=== PATIENT | female | born 1945 | race Caucasian/White ===

== ENCOUNTER 2021-08-04 09:53 | Observation (INO) ==
[2021-08-04 12:48] LABS: Basophils % 0.4 %; Eosinophils # 0.1 K/mcL (0.0-0.6); Eosinophils % 0.8 %; Hematocrit 38.9 % (35.3-44.9); Hemoglobin 12.3 g/dL (11.5-15.4); Immature Granulocytes % 0.5 % (0-4); Lymphocytes # 0.9 K/mcL (0.6-4.6); Lymphocytes % 10.5 %; Mean Corpuscular HGB Conc 31.6 g/dL (31.6-35.5); Mean Corpuscular Hemoglobin 31.9 pg (28.0-33.3); Mean Platelet Volume 10.2 fL (9.4-12.4); Monocytes # 0.4 K/mcL (0.0-1.3); Monocytes % 5.2 %; Neutrophils # 6.9 K/mcL (1.6-8.9); Platelet Count 178 K/mcL (140-400); Red Blood Count 3.85 M/mcL (3.82-4.97); Red Cell Distribution Width 14.6 % (11.5-14.5); Segmented Neutrophils % 82.6 %; White Blood Count 8.4 K/mcL (4.3-11.1)
[2021-08-04 12:52] LABS: Amorphous Sediment,Urine Few per hpf (None-Few); Bacteria,Urine Moderate per hpf (None-Few); Bilirubin,Urine Negative (Negative); Blood,Urine Small (Negative); Clarity,Urine Ex.Turbid (Clear); Color,Urine Yellow (Yellow); Glucose,Urine (UA) Normal (Normal); Ketones,Urine Negative (Negative); Leukocyte Esterase,Urine Large (Negative); Mucus,Urine Few per lpf (None-Few); Nitrite,Urine Negative (Negative); PH,Urine 7.5 pH Units (5.0-8.0); Protein,Urine 30 mg/dL (Neg-Trace); RBC,Urine 50-100 per hpf (0-3); Specific Gravity,Urine 1.015 (1.010-1.025); Squamous Epithelial Cell,Urine Few per hpf (None-Few); Urobilinogen,Urine Normal (Normal); WBC,Urine 50-100 per hpf (0-3)
[2021-08-04 13:20] LABS: Albumin/Globulin Ratio 1.4 (1.1-2.2); Bilirubin,Direct 0.1 mg/dL (0.0-0.2); Bilirubin,Indirect 0.4 mg/dL (0.0-1.0); Bilirubin,Total 0.5 mg/dL (0.3-1.0); Calcium 9.7 mg/dL (8.6-10.3); Globulin 2.9 g/dL (2.4-3.5); Potassium 4.4 mEq/L (3.5-5.1); Total Protein 6.9 g/dL (6.4-8.9)
[2021-08-04] MEDS ORDERED: 0.9 % Sodium Chloride 1,000 ML IVC ONE (13:46)
[2021-08-04] MEDS ORDERED: Morphine Sulfate 2 MG/ML SYRINGE IVP ONE (15:12)
[2021-08-04] MEDS ORDERED: *HR* HYDROcodone/Acet 5/325 mg TABLET PO PRN (17:22)
[2021-08-04] MEDS ORDERED: Melatonin 3 MG TABLET PO PRN (17:22)
[2021-08-04] MEDS ORDERED: *HR* OxyCODONE Immed Rel 5 MG TABLET PO PRN (17:22)
[2021-08-04] MEDS ORDERED: Ondansetron ODT 4 MG TAB.RAPDIS SL PRN (17:22)
[2021-08-04] MEDS ORDERED: Acetaminophen 325 MG TABLET PO PRN (17:22)
[2021-08-04] MEDS ORDERED: Naloxone 0.4 MG/ML INJ IVP PRN (17:22)
[2021-08-04] MEDS ORDERED: D5% in Water 1,000 ML IVC PRN (18:43)
[2021-08-04] MEDS ORDERED: *HR* Dextrose 50 % in Water (Syg) 50 ML SYRINGE IVP PRN (18:43)
[2021-08-04] MEDS ORDERED: Dextrose 4 GM Chewable Tablets PO PRN ×2 (18:43)
[2021-08-04] MEDS: Insulin LISPRO 300 UNITS/3 ML VIAL SUBQ SCH ×4 (18:47→23:14)
[2021-08-04] MEDS: cefTRIAXone 1,000 MG in 0.9 % Sodium Chloride 10 ML IVP SCH (19:16)
[2021-08-04] MEDS: *HR* Heparin 5,000 UNIT/ML VIAL SQ SCH (20:46)
[2021-08-04] MEDS ORDERED: Insulin LISPRO 300 UNITS/3 ML VIAL SUBQ SCH (21:00)
[2021-08-05 03:38] LABS: Basophils % 0.3 %; Eosinophils # 0.1 K/mcL (0.0-0.6); Eosinophils % 1.5 %; Hematocrit 37.4 % (35.3-44.9); Hemoglobin 11.6 g/dL (11.5-15.4); Immature Granulocytes % 0.6 % (0-4); Lymphocytes # 1.1 K/mcL (0.6-4.6); Lymphocytes % 16.7 %; Mean Corpuscular Volume 106.3 fL (83.0-100.0); Mean Platelet Volume 10.6 fL (9.4-12.4); Monocytes # 0.5 K/mcL (0.0-1.3); Monocytes % 8.4 %; Neutrophils # 4.7 K/mcL (1.6-8.9); Platelet Count 172 K/mcL (140-400); Red Blood Count 3.52 M/mcL (3.82-4.97); Red Cell Distribution Width 14.7 % (11.5-14.5); Segmented Neutrophils % 72.5 %; White Blood Count 6.5 K/mcL (4.3-11.1)
[2021-08-05 03:50] LABS: INR 1.1; Prothrombin Time 12.3 Seconds (9.4-12.1)
[2021-08-05 03:55] LABS: Calcium 9.2 mg/dL (8.6-10.3); Magnesium 1.8 mg/dL (1.6-2.6); Potassium 4.1 mEq/L (3.5-5.1)
[2021-08-05] MEDS: *HR* Heparin 5,000 UNIT/ML VIAL SQ SCH ×2 (06:20→13:12)
[2021-08-05] MEDS: Insulin LISPRO 300 UNITS/3 ML VIAL SUBQ SCH ×3 (06:45→18:49)
[2021-08-05] MEDS ORDERED: Lidocaine HCL 4 ML Topical Solution (Laryng-O-Jet Kit Sterile Pak) TP ONE (08:49)
[2021-08-05] MEDS ORDERED: *HR* FentaNYL (PF) 100 MCG/2 ML VIAL ONE (08:49)
[2021-08-05] MEDS ORDERED: *HR* Rocuronium Bromide 50 MG/5 ML VIAL ONE (08:49)
[2021-08-05] MEDS ORDERED: Ondansetron 4 MG/2 ML VIAL ONE (08:49)
[2021-08-05] MEDS ORDERED: Lidocaine -MPF 2% 2 ML VIAL ONE (08:49)
[2021-08-05] MEDS ORDERED: *HR* Propofol 200 MG/20 ML VIAL IVP ONE (08:49)
[2021-08-05] MEDS ORDERED: atenoloL 50 MG TABLET PO SCH (09:00)
[2021-08-05] MEDS ORDERED: Lidocaine Jelly 11 ml Syringe ONE (09:19)
[2021-08-05] MEDS ORDERED: Isovue-300 50ML VIAL ONE (09:19)
[2021-08-05] MEDS ORDERED: Ondansetron 4 MG/2 ML VIAL IVP PRN (09:40)
[2021-08-05] MEDS ORDERED: Promethazine 6.25 MG in Water for inj. (sterile) 20 ML IVPB PRN (09:40)
[2021-08-05] MEDS ORDERED: *HR* HYDROmorphone PF 0.5 MG/0.5 ML SYRINGE IVP PRN (09:40)
[2021-08-05] MEDS ORDERED: *HR* OxyCODONE Immed Rel 5 MG TABLET PO PRN ×2 (09:40→21:58)
[2021-08-05] MEDS ORDERED: Perflutren Lipid Microsphere 1.3 ML in 0.9 % Sodium Chloride 8.7 ML IVP PRN (12:24)
[2021-08-05] MEDS ORDERED: 0.9 % Sodium Chloride 1,000 ML IVC SCH (13:58)
[2021-08-05 15:00] LABS: Thyroid Stimulating Hormone 4.685 mcIU/mL (0.340-5.600)
[2021-08-05] MEDS ORDERED: *HR* Rivaroxaban 15 MG TABLET PO SCH (18:15)
[2021-08-05] MEDS: cefTRIAXone 1,000 MG in 0.9 % Sodium Chloride 10 ML IVP SCH (18:55)
[2021-08-05] MEDS ORDERED: Naloxone 0.4 MG/ML INJ IVP PRN (21:58)
[2021-08-05] MEDS ORDERED: Acetaminophen 325 MG TABLET PO PRN (21:58)
[2021-08-05] MEDS ORDERED: Melatonin 3 MG TABLET PO PRN (21:58)
[2021-08-05] MEDS ORDERED: Ondansetron ODT 4 MG TAB.RAPDIS SL PRN (21:58)
[2021-08-05] MEDS ORDERED: D5% in Water 1,000 ML IVC PRN (21:58)
[2021-08-05] MEDS ORDERED: *HR* Dextrose 50 % in Water (Syg) 50 ML SYRINGE IVP PRN (21:58)
[2021-08-05] MEDS ORDERED: Dextrose 4 GM Chewable Tablets PO PRN ×2 (21:58)
[2021-08-06] MEDS: Insulin LISPRO 300 UNITS/3 ML VIAL SUBQ SCH ×4 (00:18→17:37)
[2021-08-06] MEDS: *HR* HYDROcodone/Acet 5/325 mg TABLET PO PRN ×2 (00:29→12:16)
[2021-08-06 02:35] LABS: Calcium 9.2 mg/dL (8.6-10.3); Potassium 4.4 mEq/L (3.5-5.1)
[2021-08-06] MEDS: atenoloL 50 MG TABLET PO SCH (09:30)
[2021-08-06] MEDS ORDERED: Perflutren Lipid Microsphere 1.3 ML in 0.9 % Sodium Chloride 8.7 ML IVP PRN (10:48)
[2021-08-06] MEDS ORDERED: 0.9 % Sodium Chloride 1,000 ML IVC SCH ×2 (13:12→19:00)
[2021-08-06] MEDS: polyethylene glycoL 3350 17 GM POWD.PACK PO SCH (16:40)
[2021-08-06] MEDS ORDERED: *HR* Rivaroxaban 10 MG TABLET PO SCH (17:00)
[2021-08-06] MEDS ORDERED: cefTRIAXone 1,000 MG in 0.9 % Sodium Chloride 10 ML IVP SCH (19:00)
[2021-08-07] MEDS: Insulin LISPRO 300 UNITS/3 ML VIAL SUBQ SCH ×2 (05:18→11:54)
[2021-08-07 08:13] VITALS: BP 126/79; PULSE 91; TEMP 98.1; O2SAT 93
[2021-08-07] MEDS: atenoloL 50 MG TABLET PO SCH (08:53)
[2021-08-07] MEDS: polyethylene glycoL 3350 17 GM POWD.PACK PO SCH (08:53)
[2021-08-07 10:52] LABS: Estimated Average Glucose 137 mg/dl; Hemoglobin A1C 6.4 %
[2021-08-07] MEDS ORDERED: Furosemide 20 MG TABLET PO PRN (13:33)
== END 2021-08-07 19:33 | disposition home or self-care (01) ==
LOC: 3BNU 09:53 → EMEROOARM 09:53 → SUATTDRO 17:18 → 3BNU 18:06
PROVIDERS: ADMIT Internal Medicine; ATTEND Registered Nurse